=== PATIENT | female | born 1945 | race Caucasian/White ===

== ENCOUNTER 2018-07-25 22:51 | Emergency (ER) | payer OTHER ==
[~2018-07-25] VITALS: Ht 154.9 cm; Wt 45.4 kg
[2018-07-25] MEDS ORDERED: LEVOXYL50 MCG (23:18)
[2018-07-25] MEDS ORDERED: COZAAR 50 MG TA50 M1 (23:24)
[2018-07-26 00:15] VITALS: BP 130/80
== END 2018-07-26 00:15 | disposition home or self-care (01) ==
LOC: M.ERS 22:51
DX: S30.0XXA Contusion of lower back and pelvis, initial encounter (principal); W10.9XXA Fall (on) (from) unspecified stairs and steps, initial encounter; Y93.89 Activity, other specified; Y92.89 Other specified places as the place of occurrence of the external cause; Y99.8 Other external cause status; I10 Essential (primary) hypertension; Z88.5 Allergy status to narcotic agent; Z88.1 Allergy status to other antibiotic agents; Z88.8 Allergy status to other drugs, medicaments and biological substances